=== PATIENT | female | born 1975 | race Two or more races ===

== ENCOUNTER 2020-06-02 12:30 | Inpatient (IN) | payer OTHER ==
[~2020-06-02] VITALS: Ht 175.3 cm; Wt 81.6 kg
--- NOTE | 2020-06-02 12:42 | NUR ---
PACIENTE ALERTA Y ORIENTADA. PACIENTE VERBALIZA PAMELLA SIDO REFERIDA POR DR. FARIAS AUSTIN, GINECOLOGO POR [place] VAGINAL, HEMOGLOBINA BAJA Y DOLOR DE PECHO INTERMITENTE. PACIENTE REFIERE TENER DEBILIDAD. SINTOMAS PRESENTES AL MOMENTO. SE MARION S/V. SE UBICA EN ALLISON DE OBSERVACION. PARA CONSULTA MEDICA.
--- NOTE | 2020-06-02 13:31 | NUR ---
PTE EVALUADA POR EL DR WEISS QUI[place]. SE ORIENTA SOBRE EL MISMO, LO CUAL REFIERE ENTENDER. SE REALIZAN PRUEBAS DE LABORATORIO Y SE ADMINISTRAN MEDICAMENTOS NATHALIA ORDEN MEDICA Y SIGUIENDO MEDIDAS ASEPTICAS. 2 H/L PATENTES Y LIBRES DE EDEMA O ERITEMA.
--- NOTE | 2020-06-02 14:31 | NUR ---
SE ENTREGAN TUBOS PILOTOS Y MUESTRA DE TIPO Y ANGELO PARA 2 U DE PRBC EN HOLD.
--- NOTE | 2020-06-02 16:34 | NUR ---
SE RECIBE PTE ALERTA Y ORIENTADA X 3 ESFERAS EN CAMA CON BARANDAS ELEVADAS POR SEGURIDAD. PRESENTANDO BUEN PATRON RESPIRATORIO. RECIBIENDO IV'S 0.9NSS BAJANDO A 150ML/HR Y H/L EN BRAZO DERECHO AREA IMANI DE EDEMA Y ERITEMA. PENDIENTE 2 PRBC PARA TRANSFUNDIR. SE MANTIENE EN OBSERVACION POR CAMBIOS EN CONDICION MEDICA.
[2020-06-04] MEDS ORDERED: INTEGRA PLUS C1 EACH PO (19:21)
== END 2020-06-04 19:37 | disposition home or self-care (01) | DRG 812 ==
LOC: ER 12:30 → MEDJ 21:39 → SEC-K 21:51 → MEDJ 06-03 01:36
PROVIDERS: ADMIT Internal Medicine; ATTEND Internal Medicine
PROC: 30233N1 Transfusion of Nonautologous Red Blood Cells into Peripheral Vein, Percutaneous Approach (ICD-10-PCS; principal; 2020-06-02)
DX: D64.9 Anemia, unspecified (principal); D25.9 Leiomyoma of uterus, unspecified; Z20.822 Contact with and (suspected) exposure to COVID-19; I10 Essential (primary) hypertension

== ENCOUNTER 2020-07-11 11:30 | Inpatient (IN) | payer OTHER ==
[~2020-07-11] VITALS: Ht 175.3 cm; Wt 83.9 kg
[~2020-07-11 11:30] MED LIST: INTEGRA PLUS C1 EACH PO
[2020-07-11] MEDS ORDERED: INTEGRA PLUS C1 EACH PO (13:17)
[2020-07-11] MEDS ORDERED: CARVEDILOL3.125 MG PO (16:02)
[2020-07-17] MEDS ORDERED: COLACE100 MG PO (08:13)
[2020-07-17] MEDS ORDERED: Tylenol #3 PO (08:13)
== END 2020-07-17 09:22 | disposition home or self-care (01) | DRG 743 ==
LOC: O/R 07-14 08:45 → SURH 07-14 11:30 → OB/GYN 07-14 15:33
PROVIDERS: ADMIT Obstetrics & Gynecology; ATTEND Obstetrics & Gynecology
PROC: 0UB70ZZ Excision of Bilateral Fallopian Tubes, Open Approach (ICD-10-PCS; 2020-07-14)
PROC: 0UT90ZZ Resection of Uterus, Open Approach (ICD-10-PCS; principal; 2020-07-14 12:15)
DX: D25.1 Intramural leiomyoma of uterus (principal); D25.0 Submucous leiomyoma of uterus; N80.0 Endometriosis of uterus; N92.0 Excessive and frequent menstruation with regular cycle; D64.9 Anemia, unspecified; I10 Essential (primary) hypertension